=== PATIENT | female | born 1990 | race Asian ===

== ENCOUNTER 2017-03-09 11:41 | Emergency (ER) | payer OTHER ==
[~2017-03-09] VITALS: Ht 165.1 cm; Wt 117.9 kg
[2017-03-09 12:12] LABS: HEMATOCRIT 40.9 % (37.0-47.0); HEMOGLOBIN 13.3 gm/dL (12.0-15.0); MCH 24.1 pg (26.0-34.0); MCHC 32.5 g/dL (28.0-37.0); MCV 74.1 fL (80.0-100.0); PLATELET COUNT 409 thou/uL (150-400); RBC 5.52 mil/uL (4.20-5.00); RDW 14.9 % (10.5-14.5); WBC 15.4 thou/uL (4.0-11.0)
[2017-03-09 12:13] LABS: URINE BILIRUBIN NEGATIVE (Negative); URINE BLOOD 1+ (Negative); URINE COLOR YELLOW; URINE GLUCOSE-RANDOM* NEGATIVE (Negative); URINE KETONES NEGATIVE (Negative); URINE NITRITE NEGATIVE (Negative); URINE PROTEIN (DIPSTICK) NEGATIVE (Negative); URINE SPECIFIC GRAVITY 1.025 (1.003-1.035); URINE UROBILINOGEN 0.2 E.U./dl (0.2-1.0)
[2017-03-09 12:16] LABS: MANUAL DIFF YES
[2017-03-09 12:21] LABS: ANION GAP 11 mmol/L (7-16); BUN 10 mg/dL (7-18); CALCIUM 8.9 mg/dL (8.5-10.1); CHLORIDE 100 mmol/L (98-107); CO2 23 mmol/L (21-32); GLUCOSE 123 mg/dL (74-106); POTASSIUM 3.4 mmol/L (3.5-5.1); SODIUM 134 mmol/L (136-145)
[2017-03-09 12:27] LABS: ALKALINE PHOSPHATASE 97 U/L (46-116); DIRECT BILIRUBIN < 0.1 mg/dL (<0.1-0.3); SGOT 13 U/L (15-37); SGPT 21 U/L (30-65); TOTAL BILIRUBIN 0.4 mg/dL (<0.1-1.0); TOTAL PROTEIN 8.8 g/dL (6.4-8.2)
[2017-03-09 12:41] LABS: ABSOLUTE NEUTROPHILS 13.2 thou/uL (1.4-8.2); ANISOCYTOSIS 1+; MICROCYTES 1+; TOTAL CELL COUNT 100
[2017-03-09 12:51] LABS: CASTS None Seen /LPF (None Seen); CRYSTALS None Seen /LPF (None Seen); SQUAMOUS >10 Many /LPF (0-3)
[2017-03-09 12:52] LABS: URINE WBC 0-5 Rare /HPF (0-5)
[2017-03-09 12:53] LABS: BACTERIA 1-9 Few /HPF (None Seen); URINE RBC 3-10 Few /HPF (0-2)
[2017-03-09] MEDS ORDERED: ONDANSETRON HCL4 M2 PO (13:57)
[2017-03-09 14:05] VITALS: BP 128/67
== END 2017-03-09 14:05 | disposition home or self-care (01) ==
LOC: ER 11:41
PROVIDERS: Nurse Practitioner
DX: R10.9 Unspecified abdominal pain (principal); D72.829 Elevated white blood cell count, unspecified; R11.0 Nausea; F10.99 Alcohol use, unspecified with unspecified alcohol-induced disorder